=== PATIENT | female | born 1960 | race Hispanic/Latino ===

== ENCOUNTER 2025-03-16 17:28 | Emergency (ER) | payer OTHER, BC ==
[~2025-03-16] VITALS: Ht 154.9 cm; Wt 855.0 kg
[2025-03-16 21:11] VITALS: BP 158/96; PULSE 72; RESP 17; TEMP 98.6; O2SAT 99
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
[2025-03-16] MEDS ORDERED: METH-811 PO (21:37)
[2025-03-16] MEDS ORDERED: NAPR-1196 PO (21:37)
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
== END 2025-03-16 21:40 | disposition home or self-care (01) ==
LOC: EDH 17:28
DX: S70.12XA Contusion of left thigh, initial encounter (principal); M54.9 Dorsalgia, unspecified; M62.838 Other muscle spasm; E11.9 Type 2 diabetes mellitus without complications; V89.2XXA Person injured in unspecified motor-vehicle accident, traffic, initial encounter; Y93.89 Activity, other specified; Y92.89 Other specified places as the place of occurrence of the external cause; Y99.8 Other external cause status
CPT/HCPCS: 99284; 73552; 72100; 72072; 96372; J1885